=== PATIENT | male | born 1955 | race Caucasian/White ===

== ENCOUNTER 2018-01-05 23:59 | Emergency (ER) | payer OTHER ==
[~2018-01-05] VITALS: Ht 180.3 cm; Wt 73.4 kg
[2018-01-06 00:07] VITALS: TEMP 36.8; Ht 180.3 cm; Wt 73.4 kg
[2018-01-06] MEDS ORDERED: SODIUM CHLORIDE 0.9% 1000ML 1,000 ML IV STA (00:16)
--- NOTE | 2018-01-06 00:17 | EMERGENCY ROOM VISIT NOTE ---
History Report prepared by Nabeel: Naty Salgado Under the Supervision of: Dr. Seymour Veliz M.D. First contact with patient: 00:02 Chief Complaint: SYNCOPE Stated Complaint: SYNCOPE History of Present Illness The patient is a 62 year old male who presents to the Emergency Room with complaints of an episode of syncope that occurred yesterday. The patient reports that he woke up around 2300 yesterday and had a cramp in his left calf. The patient states that he got out of bed to stretch his calf and went to the bathroom. However when he got to the bathroom, he notes that he felt dizzy and fell to the floor. He states that he bumped his head but was able to get up, urinate, and wash his hands. He then reports feeling very dizzy and falling a second time, but he is unsure if he blacked out completely. The patient notes that he did not try to get up again. The patient's states that she heard the patient fall the second time and found the patient in cold sweats on the bathroom floor. The patient denies having similar syncope episodes in the past, and he also denies any rash and headaches. He notes that he currently does not feel dizzy. The patient notes that he takes Ibuprofen occasionally when his wrist or back is sore, and he states that he took 2 doses Ibuprofen yesterday morning. He also reports taking magnesium before bed, but he denies taking any other medication. The patient also states that he lifted weights and ran a few days ago, but he notes that this activity is nothing out of the ordinary. He reports a history of exercise-induced asthma. Source of History: patient, spouse/significant other () Onset: around 2300 yesterday Position: head Quality: other (syncope) Timing: other (episode) Associated Symptoms: + diaphoresis (cold sweats), No headache, No rash Note: Additional symptoms: left calf cramp, dizziness Review of Systems See HPI for pertinent positives & negatives. A total of 10 systems reviewed and were otherwise negative. Past Medical & Surgical Medical Problems: (1) Exercise-induced asthma Family History No pertinent family history Social History Smoking Status: Never Smoker Marital Status: Physical Exam Vital Signs Date Time Temp Pulse Resp B/P (MAP) Pulse Ox O2 Delivery O2 Flow Rate FiO2 01/06/18 02:00 78 20 135/81 96 Room Air 8/25/18 01:25 124/81 01/06/18 01:24 129/86 01/06/18 01:22 137/76 01/06/18 01:22 78 17 137/76 99 Room Air 76 129/86 77 124/81 01/06/18 01:00 130/81 01/06/18 00:59 74 19 99 01/06/18 00:47 72 01/06/18 00:39 98 Room Air 01/06/18 00:30 127/66 01/06/18 00:07 36.8 73 22 119/88 99 Room Air Physical Exam GENERAL: Awake, alert, well-appearing, in no acute distress HENT: Normocephalic, atraumatic. Oropharynx unremarkable. EYES: Normal conjunctiva. Sclera non-icteric. NECK: Supple. No nuchal rigidity. FROM. No JVD. RESPIRATORY: Clear to auscultation. CARDIAC: Regular rate, normal rhythm. Extremities warm and well perfused. Pulses equal. ABDOMEN: Soft, non-distended. No tenderness to palpation. No rebound or guarding. No masses. RECTAL: Deferred. MUSCULOSKELETAL: Chest examination reveals no tenderness. The back is symmetrical on inspection without obvious abnormality. There is no CVA tenderness to palpation. No joint edema. LOWER EXTREMITIES: Calves are equal size bilaterally and non-tender. No edema. No discoloration. NEURO: Normal sensorium. No sensory or motor deficits noted. SKIN: No rash or jaundice noted. Medical Decision & Procedures Laboratory Results 01/06/18 00:25 Red Blood Count 5.02, Mean Corpuscular Volume 90.4, Mean Corpuscular Hemoglobin 30.9, Mean Corpuscular Hemoglobin Concent 34.1, Mean Platelet Volume 11.0, Neutrophils (%) (Auto) 62.7, Lymphocytes (%) (Auto) 28.0, Monocytes (%) (Auto) 5.6, Eosinophils (%) (Auto) 3.3, Basophils (%) (Auto) 0.2, Neutrophils # (Auto) 4.15, Lymphocytes # (Auto) 1.85, Monocytes # (Auto) 0.37, Eosinophils # (Auto) 0.22, Basophils # (Auto) 0.01 01/06/18 00:25 Test 01/06/18 00:22 01/06/18 00:25 01/06/18 01:30 Bedside Glucose 102 mg/dl (70-99) White Blood Count 6.61 K/uL (4.8-10.8) Red Blood Count 5.02 M/uL (4.7-6.1) Hemoglobin 15.5 g/dL (14.0-18.0) Hematocrit 45.4 % (42-52) Mean Corpuscular Volume 90.4 fL (80-100) Mean Corpuscular Hemoglobin 30.9 pg (25-34) Mean Corpuscular Hemoglobin Concent 34.1 g/dl (32-36) Platelet Count 182 K/uL (130-400) Mean Platelet Volume 11.0 fL (7.4-10.4) Neutrophils (%) (Auto) 62.7 % Lymphocytes (%) (Auto) 28.0 % Monocytes (%) (Auto) 5.6 % Eosinophils (%) (Auto) 3.3 % Basophils (%) (Auto) 0.2 % Neutrophils # (Auto) 4.15 K/uL (1.4-6.5) Lymphocytes # (Auto) 1.85 K/uL (1.2-3.4) Monocytes # (Auto) 0.37 K/uL (0.11-0.59) Eosinophils # (Auto) 0.22 K/uL (0-0.5) Basophils # (Auto) 0.01 K/uL (0-0.2) RDW Standard Deviation 44.7 fL (36.4-46.3) RDW Coefficient of Variation 13.6 % (11.5-14.5) Immature Granulocyte % (Auto) 0.2 % Immature Granulocyte # (Auto) 0.01 K/uL (0.00-0.02) Anion Gap 7.0 mmol/L (3-11) Est Creatinine Clear Calc Drug Dose 87.5 ml/min Estimated GFR () 103.7 Estimated GFR (Non- 89.5 BUN/Creatinine Ratio 13.0 (10-20) Calcium Level 8.5 mg/dl (8.5-10.1) Total Bilirubin 0.4 mg/dl (0.2-1) Direct Bilirubin < 0.1 mg/dl (0-0.2) Aspartate Amino Transf (AST/SGOT) 20 U/L (15-37) Alanine Aminotransferase (ALT/SGPT) 19 U/L (12-78) Alkaline Phosphatase 47 U/L (45-117) Total Creatine Kinase 109 U/L (39-308) Creatine Kinase MB 2.5 ng/ml (0.5-3.6) Creatine Kinase MB Ratio 2.3 (0-3.0) Troponin I < 0.015 ng/ml (0-0.045) Total Protein 7.1 gm/dl (6.4-8.2) Albumin 3.5 gm/dl (3.4-5.0) Thyroid Stimulating Hormone (TSH) 4.880 uIu/ml (0.300-4.500) Urine Color YELLOW Urine Appearance CLEAR (CLEAR) Urine pH 6.0 (4.5-7.5) Urine Specific Omega 1.017 (1.000-1.030) Urine Protein TRACE (NEG) Urine Glucose (UA) NEG (NEG) Urine Ketones NEG (NEG) Urine Occult Blood NEG (NEG) Urine Nitrite NEG (NEG) Urine Bilirubin NEG (NEG) Urine Urobilinogen NEG (NEG) Urine Leukocyte Esterase NEG (NEG) Urine WBC (Auto) 1-5 /hpf (0-5) Urine RBC (Auto) 0-4 /hpf (0-4) Urine Hyaline Casts (Auto) 5-10 /lpf (0-5) Urine Epithelial Cells (Auto) 10-20 /lpf (0-5) Urine Bacteria (Auto) NEG (NEG) Labs reviewed by ED physician. Medications Administered Medications (Trade) Dose Ordered Sig/Anabell Route Start Time Stop Time Status Last Admin Dose Admin Sodium Chloride 1,000 ml @ 999 mls/hr Q1H1M STAT IV 01/06/18 00:16 01/06/18 01:16 DC 01/06/18 00:38 999 MLS/HR ECG Per My Interpretation Indication: syncope Rate (beats per minute): 75 Rhythm: normal sinus Findings: other (no ST elevation, no ST depression) ED Course 0014: Past medical records reviewed. The patient was evaluated in room C4. A complete history and physical examination was performed. 0222: Upon reexamination the patient is resting. I discussed results and treatment plan with the patient. He verbalizes agreement and understanding. The patient is ready for discharge. Medical Decision Etiologies such as vasovagal event, infection, hypoglycemia, electrolyte abnormalities, cardiac sources, intracerebral event, toxicologic, neurologic, as well as others were entertained. This is a 62-year-old male who presents to the emergency department during a period of high volume and high acuity during single provider coverage complaining of a vasovagal episode while trying to micturate. Upon arrival to the emergency department the patient has no complaints. He denies any headache and using shared medical decision making we felt that the patient did not require CAT scan of the head. Patient has a normal EKG as well as CBC renal profile. He is slightly orthostatic. He was given a normal saline bolus here in the emergency department. I do feel that the patient is well enough to be discharged home however I strongly recommended that the patient increase his fluids for the next 48 hours. Both patient and are in agreement with the treatment plan. Medication Reconcilliation Current Medication List: was personally reviewed by me Blood Pressure Screening Patient's blood pressure: Normal blood pressure Impression Primary Impression: Orthostatic hypertension Additional Impression: Vasovagal episode Scribe Attestation The scribe's documentation has been prepared under my direction and personally reviewed by me in its entirety. I confirm that the note above accurately reflects all work, treatment, procedures, and medical decision making performed by me. Departure Information Dispostion Home / Self-Care Referrals Yimi Michel M.D. (PCP) Forms HOME CARE DOCUMENTATION FORM, IMPORTANT VISIT INFORMATION Patient Instructions My [facility] Additional Instructions Increase fluids next 48 hours You have been examined and treated today on an emergency basis only. This is not a substitute for, or an effort to provide, complete comprehensive medical care. It is impossible to recognize and treat all injuries or illnesses in a single emergency department visit. It is therefore important that you follow up closely with Dr Lynch. Call as soon as possible for an appointment. Thank you for your time and consideration. I look forward to speaking with you again soon. Please don't hesitate to call us if you have any questions. Problem Qualifiers
[2018-01-06 00:35] LABS: BASO % 0.2 %; BASO ABS # 0.01 K/uL (0-0.2); EOS % 3.3 %; EOS ABS # 0.22 K/uL (0-0.5); HEMATOCRIT 45.4 % (42-52); HEMOGLOBIN 15.5 g/dL (14.0-18.0); IG# 0.01 K/uL (0.00-0.02); LYMPH ABS # 1.85 K/uL (1.2-3.4); MEAN CELL VOLUME 90.4 fL (80-100); MEAN CORPUSCULAR HEMOGLOBIN 30.9 pg (25-34); MEAN CORPUSCULAR HGB CONC 34.1 g/dl (32-36); MONO % 5.6 %; MONO ABS # 0.37 K/uL (0.11-0.59); NEUT % 62.7 %; NEUT ABS # 4.15 K/uL (1.4-6.5); PLATELET COUNT 182 K/uL (130-400); RED CELL DISTRIBUTION WIDTH CV 13.6 % (11.5-14.5); RED CELL DISTRIBUTION WIDTH SD 44.7 fL (36.4-46.3); WHITE BLOOD COUNT 6.61 K/uL (4.8-10.8)
[2018-01-06 00:39] VITALS: O2SAT 98
[2018-01-06 01:23] LABS: ALBUMIN 3.5 gm/dl (3.4-5.0); ALKALINE PHOSPHATASE 47 U/L (45-117); ALT/SGPT 19 U/L (12-78); AST/SGOT 20 U/L (15-37); BLOOD UREA NITROGEN 12 mg/dl (7-18); CALCIUM 8.5 mg/dl (8.5-10.1); CARBON DIOXIDE 27 mmol/L (21-32); CKMB 2.5 ng/ml (0.5-3.6); CREATININE 0.92 mg/dl (0.60-1.40); GLUCOSE 96 mg/dl (70-99); POTASSIUM 3.7 mmol/L (3.5-5.1); SODIUM 140 mmol/L (136-145); TOTAL PROTEIN 7.1 gm/dl (6.4-8.2)
[2018-01-06 02:00] VITALS: BP 135/81; PULSE 78; O2SAT 96
--- NOTE | 2018-01-06 07:02 | DIAGNOSTIC IMAGING REPORT ---
CHEST ONE VIEW PORTABLE CLINICAL HISTORY: Syncope COMPARISON STUDY: No previous studies for comparison. FINDINGS: The cardiac and mediastinal contours are normal. There is no evidence of focal pulmonary consolidation. There is no evidence of failure. No pleural effusions are visualized.[ IMPRESSION: No active disease in the chest. Electronically signed by: Tin Carrion M.D. 01/06/2018 7:00 AM Dictated Date/Time: 01/06/2018 7:00 AM
== END 2018-01-06 02:22 | disposition home or self-care (01) ==
LOC: EDBD 23:59 → C.EDC 01-06 00:03
DX: I95.1 Orthostatic hypotension (principal); J45.990 Exercise induced bronchospasm